=== PATIENT | female | born 1970 | race Caucasian/White ===

== ENCOUNTER → 2017-12-30 | Outpatient (CLI) | payer OTHER | LOC: FIMAGING 12:05 | PROVIDERS: ATTEND Family Medicine | DX: Z12.31 Encounter for screening mammogram for malignant neoplasm of breast (principal) ==

== ENCOUNTER → 2018-01-14 | Outpatient (CLI) | payer OTHER | LOC: FIMAGING 14:43 | PROVIDERS: ATTEND Family Medicine | DX: R92.8 Other abnormal and inconclusive findings on diagnostic imaging of breast (principal) ==

== ENCOUNTER → 2018-02-01 | Outpatient (CLI) | payer OTHER ==
[~2018-02-01] MED LIST: BUPIVACAINE 0.5% 10 ML SDV ONE; LIDOCAINE 1% 300 MG/30 ML SDV ONE; THROMBIN (BOVINE) 5,000 UNIT VIAL TP ONE
== END ==
LOC: FIMAGING 07:32
PROVIDERS: ATTEND Family Medicine
PROC: 0HBT3ZX Excision of Right Breast, Percutaneous Approach, Diagnostic (ICD-10-PCS; principal; 2018-02-01)
DX: D05.11 Intraductal carcinoma in situ of right breast (principal)

== ENCOUNTER 2018-03-18 06:30 | Outpatient (CLI) | payer OTHER ==
[2018-03-18] MEDS ORDERED: LIDOCAINE 1% 300 MG/30 ML SDV ONE (07:47)
[2018-03-18] MEDS ORDERED: LR 1,000 ML IV ONE (08:32)
[2018-03-18] MEDS ORDERED: BUPIVACAINE/EPI 0.5% 30 ML SDV ONE (09:16)
[2018-03-18] MEDS ORDERED: METHYLENE BLUE 0.5% 50 MG/10 ML AMP ONE (09:21)
--- NOTE | 2018-03-18 10:18 | PDANEPAE ---
ANE History of Present Illness R/O breast CA ANE Past Medical History - Cardiovascular History Hx Hypertension: No Hx Arrhythmias: No Hx Chest Pain: No Hx Coronary Artery / Peripheral Vascular Disease: No Hx CHF / Valvular Disease: No Hx Palpitations: No - Pulmonary History Hx COPD: No Hx Asthma/Reactive Airway Disease: No Hx Recent Upper Respiratory Infection: No Hx Oxygen in Use at Home: No Hx Sleep Apnea: No Sleep Apnea Screening Result - Last Documented: Negative Pulmonary History Comment: SEASONAL ALLERGIES - Neurologic History Hx Cerebrovascular Accident: No Hx Seizures: No Hx Dementia: No - Endocrine History Hx Diabetes: No - Renal History Hx Renal Disorders: No - Liver History Hx Hepatic Disorders: No - Neurological & Psychiatric Hx Hx Neurological and Psychiatric Disorders: No - Cancer History Hx Cancer: No - Congenital Disorder History Hx Congenital Disorders: No - GI History Hx Gastrointestinal Disorders: No - Other Health History Other Health History: 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 - Chronic Pain History Chronic Pain: Yes (RT KNEE) - Surgical History Prior Surgeries: NONE ANE Review of Systems Review of Systems: - Exercise capacity METS (RN): 4 METS ANE Patient History - Allergies Allergies/Adverse Reactions: No Allergies [NKDA] Allergy (Verified 05/14/12 14:03) - Home Medications Home medications: home medication list seen and reviewed Home Medications: Acyclovir PRN 03/02/18 [Last Taken Unknown] Herbals/Supplements -Info Only DAILY 03/02/18 [Last Taken Unknown] ZYRTEC PRN 03/02/18 [Last Taken Unknown] - NPO status NPO Since - Liquids (Date): 03/18/18 NPO Since - Liquids (Time): 06:00 NPO Since - Solids (Date): 03/17/18 NPO Since - Solids (Time): 18:00 - Anes Hx Anes Hx: no prior problems - Smoking Hx Smoking Status: Never smoked - Family Anes Hx Family Hx Anesthesia Complications: NEG ANE Labs/Vital Signs - Vital Signs Blood Pressure: 128/63 Heart Rate: 88 Respiratory Rate: 14 O2 Sat (%): 100 Height: 170.18 cm Weight: 54.431 kg ANE Physical Exam - Airway Neck exam: FROM Mallampati Score: Class 1 Mouth exam: normal dental/mouth exam - Pulmonary Pulmonary: no respiratory distress - Cardiovascular Cardiovascular: regular rate and rhythym - ASA Status ASA Status: I ANE Anesthesia Plan Anesthesia Plan: GA w LMA
[2018-03-18] MEDS ORDERED: MIDAZOLAM 2 MG/2 ML VIAL IVP ONE (10:19)
[2018-03-18] MEDS ORDERED: ceFAZolin 2 GM/SWFI 2 GM/20 ML SYR IVP ONE (10:25)
[2018-03-18] MEDS ORDERED: METOCLOPRAMIDE 10 MG/2 ML VIAL ONE (10:26)
[2018-03-18] MEDS ORDERED: LIDOCAINE 2% 5 ML SDV ONE (10:27)
--- NOTE | 2018-03-18 10:27 | PDGENHP ---
History & Physical Chief Complaint: Right breast cancer identified on screening mammogram. Biopsy positive History of Present Illness: As above Pertinent Past, Social, Family History: PMHx: negative. Meds: none. NKDA Relevant Physical Exam: Alert, NAD. Wire in place Cardiorespiratory Assessment: CTA B. RRR. Risks/benefits reviewed with patient and . Questions answered. Plan R SLN bx and NL lumpectomy
[2018-03-18] MEDS ORDERED: fentaNYL 100 MCG/2 ML INJ ONE ×2 (10:28→12:12)
[2018-03-18] MEDS ORDERED: PROPOFOL 200 MG/20 ML VIAL ONE (10:28)
[2018-03-18] MEDS ORDERED: ceFAZolin 1 GM VIAL ONE (10:46)
[2018-03-18] MEDS ORDERED: DEXAMETHASONE 4 MG/ML VIAL ONE (11:33)
[2018-03-18] MEDS ORDERED: ONDANSETRON 4 MG/2 ML VIAL ONE (11:33)
[2018-03-18] MEDS ORDERED: fentaNYL 100 MCG/2 ML INJ IVP PRN (11:50)
[2018-03-18] MEDS ORDERED: PROMETHAZINE HCL 25 MG/ML INJ IVP PRN (11:50)
[2018-03-18] MEDS ORDERED: ONDANSETRON 4 MG/2 ML VIAL IVP PRN (11:50)
[2018-03-18] MEDS ORDERED: NALOXONE HCL 0.4 MG/ML INJ IVP PRN (11:50)
--- NOTE | 2018-03-18 12:50 | POSTANESTH ---
Post Anesthetic Evaluation Cardiovascular Status: Similar to Pre-Op Cond Respiratory Status: Similar to Pre-op Cond. Level of Consciousness/Mental Status: Can Participate in Eval Pain Control: Adequate, Prn Tx Ordered Nausea/Vomiting Control: Adequate, Prn Tx Ordered Complications Possibly Related to Anesthesia: None Noted
--- NOTE | 2018-03-18 12:51 | POSTOPPROG ---
Post Op Note Date of Operation: 03/18/18 Surgeon: Bhupinder Qureshi Anesthesiologist: Meagan Anesthesia: LMA Pre-op Diagnosis: R breast CA Post-op Diagnosis: same Procedure: R NL lump, SLN Inf/Abcess present in the surg proc area at time of surgery?: No EBL: Minimal
[2018-03-18 14:35] VITALS: BP 97/62
--- NOTE | 2018-03-18 15:00 | GOP ---
[f rep st] OPERATIVE REPORT DATE OF OPERATION: 03/18/2018 SURGEON: Jorge Qureshi MD ANESTHESIA: Laryngeal mask anesthesia. ANESTHESIOLOGIST: Pb Rhodes MD PREOPERATIVE DIAGNOSIS: Right breast cancer. POSTOPERATIVE DIAGNOSIS: Right breast cancer. PROCEDURE PERFORMED: 1. Right axillary sentinel lymph node biopsy. 2. Right breast needle localization lumpectomy. FINDINGS: The patient had a total of 4 sentinel lymph nodes that were all read as negative on frozen section. No other lesions were identified. ESTIMATED BLOOD LOSS: 20 cc INDICATIONS: This is a 48-year-old female with a history of right breast cancer. Risks and benefits of the procedure were discussed with the patient and her family, questions were answered, and she wi shed to proceed. DESCRIPTION OF PROCEDURE: With the patient in supine position, after induction of adequate laryngeal mask anesthesia, she was prepped and draped in the standard surgical fashion. Marcaine 0.5% was inj ected throughout the right axilla for local anesthesia. An oblique incision was made with a 15-blade and carried down to through the subcutaneous tissue with Bovie cautery and blunt dissection. The ax illary fat pad was entered and the Neoprobe was used to assess the axillary contents. Two additional lymph nodes were withdrawn, which appeared to be active on the probe. Apparent lymphatics were clip ped prior to transection and this was sent for frozen section. This returned with no evidence of mal ignancy. There were 2 further nodes identified on the Neoprobe, which were excised after clipping ly mphatics. They were then sent for frozen section and also returned negative. There area was inspect ed and palpated with no other lesions identified. The area was irrigated and then the subcutaneous t issue was closed with 3-0 Vicryl in an interrupted fashion. The skin was closed with 4-0 Monocryl in a subcuticular stitch. The wound was sterilely dressed and then segregated from the remainder of th e procedure. The needle localization site was injected with 0.5% Marcaine for local anesthesia. A curvilinear inc ision was made with a 15-blade and carried down through the subcutaneous tissue with Bovie cautery an d blunt dissection. Flaps were raised on the superior and inferior aspects of the incision and then a lumpectomy was performed sharply. The tissue around the needle was taken, without difficulty, to j ust above the chest wall. The needle was palpated in the specimen, however, the needle appeared to b e bent. Therefore it was entirely removed from the specimen just prior to the extraction. The area was thoroughly irrigated and aspirated. The specimen was marked with an ink set. It was sent for ra diological evaluation, which returned confirmation of the desired specimen. Tissue was returned to t cavity, which was then clipped for possible radiation therapy. Good hemostasis was noted and it w as irrigated again. The subcutaneous tissue was then closed in layers using 3-0 Vicryl in an interru pted fashion. Skin was closed with 4-0 Monocryl in a subcuticular stitch. The wound was sterilely d ressed. The patient was extubated and taken to the PACU in stable condition. COMPLICATIONS: None. DRAINS: None. /[id number]/MODL
== END 2018-03-18 13:45 | disposition home or self-care (01) ==
LOC: FSGY 06:30
PROVIDERS: ATTEND Surgery
PROC: 07B50ZZ Excision of Right Axillary Lymphatic, Open Approach (ICD-10-PCS; principal; 2018-03-18 10:30)
PROC: 0HBT0ZZ Excision of Right Breast, Open Approach (ICD-10-PCS; principal; 2018-03-18 10:30)
DX: C50.411 Malignant neoplasm of upper-outer quadrant of right female breast (principal)
CPT/HCPCS: 19125; 38525; 76098; A9520; J0690; J1100; J2250; J2405; J2704; J2765; J3010; Q9968

== ENCOUNTER → 2018-07-22 | Outpatient (CLI) | payer OTHER | LOC: FIMAGING 14:08 | PROVIDERS: ATTEND Nurse Practitioner | DX: Z13.820 Encounter for screening for osteoporosis (principal); M85.89 Other specified disorders of bone density and structure, multiple sites; Z78.0 Asymptomatic menopausal state; Z85.3 Personal history of malignant neoplasm of breast ==

== ENCOUNTER → 2018-08-04 | Outpatient (CLI) | payer OTHER | LOC: FIMAGING 11:27 | PROVIDERS: ATTEND Internal Medicine Hematology & Oncology | DX: Z08 Encounter for follow-up examination after completed treatment for malignant neoplasm (principal); R92.0 Mammographic microcalcification found on diagnostic imaging of breast; Z85.3 Personal history of malignant neoplasm of breast ==

== ENCOUNTER → 2019-01-04 | Outpatient (CLI) | payer OTHER | LOC: FIMAGING 11:25 | PROVIDERS: ATTEND Internal Medicine Hematology & Oncology | DX: D05.11 Intraductal carcinoma in situ of right breast (principal) ==

== ENCOUNTER → 2019-02-01 | Day surgery (SDC) | payer OTHER ==
[~2019-02-01] MED LIST changes: -BUPIVACAINE 0.5% 10 ML SDV ONE; +BUPIVACAINE 0.5% 30 ML SDV ONE; -THROMBIN (BOVINE) 5,000 UNIT VIAL TP ONE
== END ==
LOC: FIMAGING 07:18
PROVIDERS: ATTEND Radiology Diagnostic Radiology
DX: C50.811 Malignant neoplasm of overlapping sites of right female breast (principal); Z80.3 Family history of malignant neoplasm of breast

== ENCOUNTER → 2019-02-15 | Outpatient (CLI) | payer OTHER ==
[~2019-02-15] MED LIST changes: -BUPIVACAINE 0.5% 30 ML SDV ONE; +GADOBUTROL 10 ML VIAL IVP ONE; -LIDOCAINE 1% 300 MG/30 ML SDV ONE
== END ==
LOC: FIMAGING 06:46
PROVIDERS: ATTEND Internal Medicine Hematology & Oncology
DX: C50.811 Malignant neoplasm of overlapping sites of right female breast (principal)
CPT/HCPCS: A9585; C8908

== ENCOUNTER 2019-05-05 06:49 | Observation (INO) | payer OTHER | END 2019-05-06 12:10 | disposition home or self-care (01) | LOC: F3E 06:49 → F1N 07:42 ==